=== PATIENT | female | born 1985 | race Caucasian/White ===

== ENCOUNTER 2016-12-13 13:52 | Emergency (ER) | payer BC, SELFPAY ==
[2016-12-13] MEDS ORDERED: ISOVUE-370 76% 100ML VIAL (Q9967) As Ordered ONE (14:28)
[2016-12-13 14:45] LABS: BASO # 0.1 K/mm3 (0.0-0.2); BASO % 0.7 % (0.0-1.0); EOS # 0.1 K/mm3 (0.0-0.50); EOS % 1.4 % (0.0-3.0); LARGE UNSTAINED CELL # 0.1 K/mm3 (0.0-0.4); LARGE UNSTAINED CELL % 0.7 % (0.0-4.0); LYMPH # 0.9 K/mm3 (1.5-4.5); LYMPH % 9.2 % (24.0-44.0); MEAN CORPUSCULAR HEMOGLOBIN 32.2 pg (27.0-33.0); MEAN CORPUSCULAR HGB CONC 32.8 g/dl (32.0-36.5); MONO # 0.3 K/mm3 (0.0-0.8); MONO % 3.3 % (0.0-5.0); NEUTROPHILS # 7.9 K/mm3 (1.8-7.7); NEUTROPHILS % 84.8 % (36.0-66.0); PLATELET COUNT, AUTOMATED 304 k/mm3 (150-450); RED CELL DISTRIBUTION WIDTH 12.5 % (11.5-14.5); WHITE BLOOD COUNT 9.3 K/mm3 (4.0-10.0)
[2016-12-13 15:01] LABS: BLOOD UREA NITROGEN 12 MG/DL (7-18); CREATININE FOR GFR 0.83 MG/DL (0.55-1.02); GLOMERULAR FILTRATION RATE > 60.0 (>60); GLUCOSE, FASTING 103 MG/DL (70-105); SODIUM LEVEL 139 MEQ/L (136-145)
[2016-12-13 15:02] LABS: ALBUMIN 3.9 GM/DL (3.2-5.2); ALBUMIN/GLOBULIN RATIO 1.18 (1.00-1.93); ALKALINE PHOSPHATASE 85 U/L (45-117); ALT/SGPT 26 U/L (12-78); ANION GAP 6 MEQ/L (8-16); AST/SGOT 27 U/L (15-37); BILIRUBIN,TOTAL 0.7 MG/DL (0.2-1.0); CALCIUM LEVEL 9.3 MG/DL (8.5-10.1); CARBON DIOXIDE LEVEL 29 MEQ/L (21-32); CHLORIDE LEVEL 104 MEQ/L (98-107); POTASSIUM SERUM 4.4 MEQ/L (3.5-5.1); TOTAL PROTEIN 7.2 GM/DL (6.4-8.2)
--- NOTE | 2016-12-13 15:31 | REP ---
CT NECK WITH CONTRAST: HISTORY: Abscess. CONTRAST: Isovue-370, 75 mL. There is enlargement of the tonsils, greater on the left than on the right. There is extension of the tonsillar enlargement into the left side of the soft palate. There is inferior extension into the left lateral wall of the oropharynx. There is minimal mass effect on the oropharynx. The naso- and hypopharynx, larynx and subglottic trachea are normal in appearance. The salivary and thyroid glands are normal. An enlarged lymph node 1.2 cm in width is present in the left internal jugular chain at the level of the oropharynx. Small lymph nodes less than 1 cm in size are present in the right internal jugular chain, posterior triangles, submandibular and submental areas. The lung apices are clear. Minimal mucosal thickening is present in the left maxillary sinus. IMPRESSION: The above findings are consistent with tonsillitis and lymphadenitis. There is minimal mass effect on the oropharynx. Signed by Paul Anand MD 12/13/2016 03:50 P
[2016-12-13 15:41] LABS: ERYTHROCYTE SEDIMENTATION RATE 2 mm/hr (0-20)
--- NOTE | 2016-12-13 15:41 | EDDOCDS ---
Nurse's Notes [facility] Name: Nora Williamson Age: 31 yrs Sex: Female : 1985 Arrival Date: 12/13/2016 Time: 13:52 Bed I2 / M2 Private MD: Jena Monroe Diagnosis: Hypertrophy of tonsils-tonsilloliths;Acute tonsillitis Presentation: 12/13 14:06 Presenting complaint: Patient states: Sent from [facility] for [facility] tonsillar abscess on the left.. has had sore throat for weeks worse over the last 2 days. Adult Sepsis Screening: The patient does not have new or worsening altered mentation. Patient's respiratory rate is less than 22. Systolic blood pressure is greater than 100. Patient has a qSOFA score of 0- Negative Sepsis Screen. Suicide/Homicide risk assessment- the patient denies having any suicidal and/or homicidal ideations and does not present with any other emotional, behavioral or mental health complaints. Status: Patient is not a supervisor gate services or dependent. Transition of care: patient was not received from another setting of care. 14:06 Acuity: SUE Level 3 [facility] 14:06 Method Of Arrival: Walkin/Carried/[facility] Triage Assessment: 14:12 General: Appears in no apparent distress, Behavior is appropriate for age. Pain: [facility] Location: throat Pain currently is 4 out of 10 on a pain scale. Pt Declines HIV testing. Neurological: Level of Consciousness is awake, alert, Oriented to person, place, time. EENT: Reports pain when swallowing Pain is 4 out of 10 on a pain scale. Respiratory: Airway is patent Respiratory effort is even, unlabored, Respiratory pattern is regular, symmetrical. Derm: Skin is pink, warm & dry. 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 Paxil 30 mg Oral tab 1 tab once daily (Last dose: 12/13/2016 07:00) 2. clonazepam 1 mg Oral tab 1 tab daily (Last dose: 12/13/2016 07:00) 3. Prednisone 60 mg Oral one time dose at urgent care (Last dose: 12/13/2016 12:15) 4. Rocephin 1 gram Inj solr 1 g one time dose at urgent care (Last dose: 12/13/2016 12:15) - PMHx: Anxiety Disorder; - PSHx: Breast Augmentation; - Social history: Smoking status: Patient uses tobacco products, heavy tobacco smoker. No barriers to communication noted, The patient speaks fluent Arabic. - Family history: Not pertinent. - : The pt / caregiver states he / she is not on anticoagulants. Home medication list is obtained from the patient. - Exposure Risk Screening:: None identified. Screenin:31 Screening information is obtained from the patient. Fall risk: No risks identified. kr3 Assistance ADL's: requires no assistance with activities of daily living. Abuse/DV Screen: The patient / caregiver reports he/she is: not in a situation that causes fear, pain or injury. Nutritional screening: No deficits noted. Advance Directives: Currently, there is no health care proxy. home support is adequate. Assessment: 14:31 General: Appears in no apparent distress, comfortable, Behavior is cooperative. Pain: kr3 Location: throat Pain currently is 4 out of 10 on a pain scale. Neurological: Level of Consciousness is awake, alert. EENT: Reports pain swallowing but able to swallow saliva. Respiratory: Respiratory effort is even, unlabored. Derm: Skin is normal. 15:40 Reassessment: Patient appears in no apparent distress at this time. Pain: Location: kr3 throat Pain currently is 4 out of 10 on a pain scale. Respiratory: Respiratory effort is even, unlabored. Derm: Skin is pink, warm & dry. Vital Signs: 13:55 BP 127 / 75; Pulse 83; Resp 18; Temp 96.4(O); Pulse Ox 99% on R/A; Weight 74.84 kg (R); elp Height 5 ft. 8 in. (172.72 cm) (R); 15:37 BP 122 / 83; Pulse 84; Resp 18; Temp 97.9(TE); Pulse Ox 95% on R/A; Pain 0/10; nb2 13:55 Body Mass Index 25.09 (74.84 kg, 172.72 cm) [facility] Vitals: 13:55 Log In Time: December 13, 2016 at 13:53. [facility] ED Course: 13:54 Patient visited by Virginia Mcguire PCA. [facility] 13:54 Patient moved to Waiting el 13:55 Jena Monroe is Private Physician. elp 13:56 Patient visited by Virginia Mcguire PCA. elp 13:56 Patient moved to Pre RCE elp 14:08 Triage Initiated kpj 14:18 Patient moved to I2 / M2 dsf 14:19 Mario Alberto Steel PA is PHCP. btw 14:19 Shirley Quiñones MD is Attending Physician. btw 14:19 Patient visited by Mario Alberto Steel PA. btw 14:30 Inserted saline lock: 20 gauge in left antecubital area and blood collected. The kr3 patient tolerated the procedure well. 14:30 CRP Sent. kr3 14:30 ESR Sent. kr3 14:31 Complete Comphrensive Metabolic Sent. kr3 14:31 CBC with Diff Sent. kr3 14:32 The patient / caregiver is instructed regarding the plan of care and ED course. Patient altagracia has correct armband on for positive identification. Placed in gown. Bed in low position. Call light in reach. Side rails up X 1. 14:59 Patient visited by Cornelia Giron RN. rs3 15:30 [facility] Payment Agreement was scanned into [employer] and attached to record. lg 15:32 Mehul Palencia is Referral Physician. btw 15:38 Patient visited by Lelia Bynum. nb2 15:39 Discontinued lock intact, bleeding controlled, pressure dressing applied, No kr3 redness/swelling at site. No procedures done that require assistance. Order Results: Lab Order: CBC with Diff; SPEC'M 12/13/16 14:29 Test: WHITE BLOOD COUNT; Value: 9.3; Range: 4.0-10.0; Units: K/mm3; Status: F Test: RED BLOOD COUNT; Value: 4.37; Range: 4.00-5.40; Units: M/mm3; Status: F Test: HEMOGLOBIN; Value: 14.1; Range: 12.0-16.0; Units: g/dl; Status: F Test: HEMATOCRIT; Value: 42.8; Range: 36.0-47.0; Units: %; Status: F Test: MEAN CORPUSCULAR VOLUME; Value: 98.0; Range: 80.0-96.0; Abnormal: Above high normal; Units: fl; Status: F Test: MEAN CORPUSCULAR HEMOGLOBIN; Value: 32.2; Range: 27.0-33.0; Units: pg; Status: F Test: MEAN CORPUSCULAR HGB CONC; Value: 32.8; Range: 32.0-36.5; Units: g/dl; Status: F Test: RED CELL DISTRIBUTION WIDTH; Value: 12.5; Range: 11.5-14.5; Units: %; Status: F Test: PLATELET COUNT, AUTOMATED; Value: 304; Range: 150-450; Units: k/mm3; Status: F Test: NEUTROPHILS %; Value: 84.8; Range: 36.0-66.0; Abnormal: Above high normal; Units: %; Status: F Test: LYMPH %; Value: 9.2; Range: 24.0-44.0; Abnormal: Below low normal; Units: %; Status: F Test: MONO %; Value: 3.3; Range: 0.0-5.0; Units: %; Status: F Test: EOS %; Value: 1.4; Range: 0.0-3.0; Units: %; Status: F Test: BASO %; Value: 0.7; Range: 0.0-1.0; Units: %; Status: F Test: LARGE UNSTAINED CELL %; Value: 0.7; Range: 0.0-4.0; Units: %; Status: F Test: NEUTROPHILS #; Value: 7.9; Range: 1.8-7.7; Abnormal: Above high normal; Units: K/mm3; Status: F Test: LYMPH #; Value: 0.9; Range: 1.5-4.5; Abnormal: Below low normal; Units: K/mm3; Status: F Test: MONO #; Value: 0.3; Range: 0.0-0.8; Units: K/mm3; Status: F Test: EOS #; Value: 0.1; Range: 0.0-0.50; Units: K/mm3; Status: F Test: BASO #; Value: 0.1; Range: 0.0-0.2; Units: K/mm3; Status: F Test: LARGE UNSTAINED CELL #; Value: 0.1; Range: 0.0-0.4; Units: K/mm3; Status: F Lab Order: Complete Comphrensive Metabolic; SPEC'M 12/13/16 14:29 Test: GLUCOSE, FASTING; Value: 103; Range: 70-105; Units: MG/DL; Status: F Test: BLOOD UREA NITROGEN; Value: 12; Range: 7-18; Units: MG/DL; Status: F Test: CREATININE FOR GFR; Value: 0.83; Range: 0.55-1.02; Units: MG/DL; Status: F Test: GLOMERULAR FILTRATION RATE; Value: > 60.0; Range: >60; Status: F Test: SODIUM LEVEL; Value: 139; Range: 136-145; Units: MEQ/L; Status: F Test: POTASSIUM SERUM; Value: 4.4; Range: 3.5-5.1; Units: MEQ/L; Status: F Test: CHLORIDE LEVEL; Value: 104; Range: 98-107; Units: MEQ/L; Status: F Test: CARBON DIOXIDE LEVEL; Value: 29; Range: 21-32; Units: MEQ/L; Status: F Test: ANION GAP; Value: 6; Range: 8-16; Abnormal: Below low normal; Units: MEQ/L; Status: F Test: CALCIUM LEVEL; Value: 9.3; Range: 8.5-10.1; Units: MG/DL; Status: F Test: AST/SGOT; Value: 27; Range: 15-37; Units: U/L; Status: F Test: ALT/SGPT; Value: 26; Range: 12-78; Units: U/L; Status: F Test: ALKALINE PHOSPHATASE; Value: 85; Range: 45-117; Units: U/L; Status: F Test: BILIRUBIN,TOTAL; Value: 0.7; Range: 0.2-1.0; Units: MG/DL; Status: F Test: TOTAL PROTEIN; Value: 7.2; Range: 6.4-8.2; Units: GM/DL; Status: F Test: ALBUMIN; Value: 3.9; Range: 3.2-5.2; Units: GM/DL; Status: F Test: ALBUMIN/GLOBULIN RATIO; Value: 1.18; Range: 1.00-1.93; Status: F Test Note: ; Units are mL/min/1.73 m2 Chronic Kidney Disease Staging per NKF: Stage I & II GFR >=60 Normal to Mildly Decreased Stage III GFR 30-59 Moderately Decreased Stage IV GFR 15-29 Severely Decreased Stage V GFR <15 Very Little GFR Left ESRD GFR <15 on DUAL RATE DEALER Lab Order: ESR; SPEC'M 12/13/16 14:29 Test: ERYTHROCYTE SEDIMENTATION RATE; Range: 0-20; Units: mm/hr; Status: I Lab Order: CRP; SPEC'M 12/13/16 14:29 Test: C REACTIVE PROTEIN QUANTITATIV; Value: 1.41; Range: 0.00-0.30; Abnormal: Above high normal; Units: MG/DL; Status: F Outcome: 15:33 Discharge ordered by Provider. bt 15:39 Discharge Assessment: patient administered narcotics - no. The following High Risk kr3 Discharge criteria are identified: None. Discharged to home ambulatory. Condition: stable. Discharge instructions given to patient, Instructed on discharge instructions, follow up and referral plans. medication usage, Demonstrated understanding of instructions, medications, Pt was receptive of discharge instructions/ teaching. Prescriptions given X 1. CT Study completed. Property sent home with patient. 15:40 Patient left the ED. kr3 Signatures: Radha Macario, RN RN Robert Lazo, Kj Reg lg Kira RayRN RN kr3 Cornelia GironRN RN rs3 Mario Alberto Steel PA PA btw Fuller, DesireeRN RN uniquef Virginia Mcguire, BANK NOTE DESIGNER BANK NOTE DESIGNER elp Lelia Bynum2 MTDD
--- NOTE | 2016-12-13 15:41 | EDDOCDS ---
Physician Documentation [facility] Name: Nora Williamson Age: 31 yrs Sex: Female : 1985 Arrival Date: 12/13/2016 Time: 13:52 Bed I2 / M2 Private MD: Jena Monroe Disposition: 12/13/16 15:33 Discharged to Home/Self Care. Impression: Hypertrophy of tonsils - tonsilloliths, Acute tonsillitis. - Condition is Stable. - Discharge Instructions: Tonsillitis, [id number]. - Prescriptions for Augmentin 875- 125 mg Oral Tablet - take 1 tablet by ORAL route every 12 hours for 10 days; 20 tablet. - Medication Reconciliation, Local Pharmacy Hours form. - Follow up: Mehul Palencia; When: Call to arrange an appointment; Reason: Further diagnostic work-up, Recheck today's complaints, Continuance of care. - Problem is new. - Symptoms are unchanged. Historical: - Allergies: No known drug Allergies; - Home Meds: 1. Paxil 30 mg Oral tab 1 tab once daily (Last dose: 12/13/2016 07:00) 2. clonazepam 1 mg Oral tab 1 tab daily (Last dose: 12/13/2016 07:00) 3. Prednisone 60 mg Oral one time dose at urgent care (Last dose: 12/13/2016 12:15) 4. Rocephin 1 gram Inj solr 1 g one time dose at urgent care (Last dose: 12/13/2016 12:15) - PMHx: Anxiety Disorder; - PSHx: Breast Augmentation; - Social history: Smoking status: Patient uses tobacco products, heavy tobacco smoker. No barriers to communication noted, The patient speaks fluent Botswanan. - Family history: Not pertinent. - : The pt / caregiver states he / she is not on anticoagulants. Home medication list is obtained from the patient. - Exposure Risk Screening:: None identified. 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 8 in. (172.72 cm) (R); 15:37 BP 122 / 83; Pulse 84; Resp 18; Temp 97.9(TE); Pulse Ox 95% on R/A; Pain 0/10; nb2 13:55 Body Mass Index 25.09 (74.84 kg, 172.72 cm) elp MDM: 14:24 IV Saline Lock ordered. btw 14:25 CT Neck With Contrast Ordered. EDMS 14:25 CBC with Diff Ordered. EDMS 14:25 Complete Comphrensive Metabolic Ordered. EDMS 14:25 ESR Ordered. EDMS 14:25 CRP Ordered. EDMS 14:49 Financial registration complete. lg 15:05 CBC with Diff Reviewed. btw 15:05 Complete Comphrensive Metabolic Reviewed. btw 15:05 CRP Reviewed. btw 15:30 [facility] Payment Agreement was scanned into [employer] and attached to record. lg Signatures: Dispatcher [employer] Radha Esqueda, JONATHAN RN Robert Lazo, Kj Reg Kira Ray RN RN kr3 Mario Alberto Steel, BRY PA btw The chart was reviewed and I authenticate all verbal orders and agree with the evaluation and treatment provided.Attachments: 15:30 [facility] Payment Agreement lg MTDD
--- NOTE | 2016-12-15 16:40 | EDDOCDS ---
Nurse's Notes [facility] Name: Nora Williamson Age: 31 yrs Sex: Female : 1985 Arrival Date: 12/13/2016 Time: 13:52 Bed I2 / M2 Private MD: Jena Monroe Diagnosis: Hypertrophy of tonsils-tonsilloliths;Acute tonsillitis Presentation: 12/13 14:06 Presenting complaint: Patient states: Sent from [facility] for [facility] tonsillar abscess on the left.. has had sore throat for weeks worse over the last 2 days. Adult Sepsis Screening: The patient does not have new or worsening altered mentation. Patient's respiratory rate is less than 22. Systolic blood pressure is greater than 100. Patient has a qSOFA score of 0- Negative Sepsis Screen. Suicide/Homicide risk assessment- the patient denies having any suicidal and/or homicidal ideations and does not present with any other emotional, behavioral or mental health complaints. Status: Patient is not a developmental services worker or dependent. Transition of care: patient was not received from another setting of care. 14:06 Acuity: SUE Level 3 [facility] 14:06 Method Of Arrival: Walkin/Carried/Asstd [facility] Triage Assessment: 14:12 General: Appears in no apparent distress, Behavior is appropriate for age. Pain: [facility] Location: throat Pain currently is 4 out of 10 on a pain scale. Pt Declines HIV testing. Neurological: Level of Consciousness is awake, alert, Oriented to person, place, time. EENT: Reports pain when swallowing Pain is 4 out of 10 on a pain scale. Respiratory: Airway is patent Respiratory effort is even, unlabored, Respiratory pattern is regular, symmetrical. Derm: Skin is pink, warm & dry. 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 Paxil 30 mg Oral tab 1 tab once daily (Last dose: 12/13/2016 07:00) 2. clonazepam 1 mg Oral tab 1 tab daily (Last dose: 12/13/2016 07:00) 3. Prednisone 60 mg Oral one time dose at urgent care (Last dose: 12/13/2016 12:15) 4. Rocephin 1 gram Inj solr 1 g one time dose at urgent care (Last dose: 12/13/2016 12:15) - PMHx: Anxiety Disorder; - PSHx: Breast Augmentation; - Social history: Smoking status: Patient uses tobacco products, heavy tobacco smoker. No barriers to communication noted, The patient speaks fluent Bulgarian. - Family history: Not pertinent. - : The pt / caregiver states he / she is not on anticoagulants. Home medication list is obtained from the patient. - Exposure Risk Screening:: None identified. Screenin:31 Screening information is obtained from the patient. Fall risk: No risks identified. kr3 Assistance ADL's: requires no assistance with activities of daily living. Abuse/DV Screen: The patient / caregiver reports he/she is: not in a situation that causes fear, pain or injury. Nutritional screening: No deficits noted. Advance Directives: Currently, there is no health care proxy. home support is adequate. Assessment: 14:31 General: Appears in no apparent distress, comfortable, Behavior is cooperative. Pain: kr3 Location: throat Pain currently is 4 out of 10 on a pain scale. Neurological: Level of Consciousness is awake, alert. EENT: Reports pain swallowing but able to swallow saliva. Respiratory: Respiratory effort is even, unlabored. Derm: Skin is normal. 15:40 Reassessment: Patient appears in no apparent distress at this time. Pain: Location: kr3 throat Pain currently is 4 out of 10 on a pain scale. Respiratory: Respiratory effort is even, unlabored. Derm: Skin is pink, warm & dry. Vital Signs: 13:55 BP 127 / 75; Pulse 83; Resp 18; Temp 96.4(O); Pulse Ox 99% on R/A; Weight 74.84 kg (R); elp Height 5 ft. 8 in. (172.72 cm) (R); 15:37 BP 122 / 83; Pulse 84; Resp 18; Temp 97.9(TE); Pulse Ox 95% on R/A; Pain 0/10; nb2 13:55 Body Mass Index 25.09 (74.84 kg, 172.72 cm) [facility] Vitals: 13:55 Log In Time: December 13, 2016 at 13:53. [facility] ED Course: 13:54 Patient visited by Virginia Mcguire PCA. [facility] 13:54 Patient moved to Waiting el 13:55 Jena Monroe is Private Physician. elp 13:56 Patient visited by Virginia Mcguire PCA. elp 13:56 Patient moved to Pre RCE elp 14:08 Triage Initiated kpj 14:18 Patient moved to I2 / M2 dsf 14:19 Mario Alberto Steel PA is PHCP. btw 14:19 Shirley Quiñones MD is Attending Physician. btw 14:19 Patient visited by Mario Alberto Steel PA. btw 14:30 Inserted saline lock: 20 gauge in left antecubital area and blood collected. The kr3 patient tolerated the procedure well. 14:30 CRP Sent. kr3 14:30 ESR Sent. kr3 14:31 Complete Comphrensive Metabolic Sent. kr3 14:31 CBC with Diff Sent. kr3 14:32 The patient / caregiver is instructed regarding the plan of care and ED course. Patient altagracia has correct armband on for positive identification. Placed in gown. Bed in low position. Call light in reach. Side rails up X 1. 14:59 Patient visited by Cornelia Giron RN. rs3 15:30 [facility] Payment Agreement was scanned into [employer] and attached to record. lg 15:32 Mehul Palencia is Referral Physician. btw 15:38 Patient visited by Lelia Bynum. nb2 15:39 Discontinued lock intact, bleeding controlled, pressure dressing applied, No kr3 redness/swelling at site. No procedures done that require assistance. 15:45 CT Neck With Contrast Returned. EDMS 02 10:49 T-Sheet-- Draft Copy was scanned into [employer] and attached to record. gb Order Results: Lab Order: CBC with Diff; SPEC'M 12/13/16 14:29 Test: WHITE BLOOD COUNT; Value: 9.3; Range: 4.0-10.0; Units: K/mm3; Status: F Test: RED BLOOD COUNT; Value: 4.37; Range: 4.00-5.40; Units: M/mm3; Status: F Test: HEMOGLOBIN; Value: 14.1; Range: 12.0-16.0; Units: g/dl; Status: F Test: HEMATOCRIT; Value: 42.8; Range: 36.0-47.0; Units: %; Status: F Test: MEAN CORPUSCULAR VOLUME; Value: 98.0; Range: 80.0-96.0; Abnormal: Above high normal; Units: fl; Status: F Test: MEAN CORPUSCULAR HEMOGLOBIN; Value: 32.2; Range: 27.0-33.0; Units: pg; Status: F Test: MEAN CORPUSCULAR HGB CONC; Value: 32.8; Range: 32.0-36.5; Units: g/dl; Status: F Test: RED CELL DISTRIBUTION WIDTH; Value: 12.5; Range: 11.5-14.5; Units: %; Status: F Test: PLATELET COUNT, AUTOMATED; Value: 304; Range: 150-450; Units: k/mm3; Status: F Test: NEUTROPHILS %; Value: 84.8; Range: 36.0-66.0; Abnormal: Above high normal; Units: %; Status: F Test: LYMPH %; Value: 9.2; Range: 24.0-44.0; Abnormal: Below low normal; Units: %; Status: F Test: MONO %; Value: 3.3; Range: 0.0-5.0; Units: %; Status: F Test: EOS %; Value: 1.4; Range: 0.0-3.0; Units: %; Status: F Test: BASO %; Value: 0.7; Range: 0.0-1.0; Units: %; Status: F Test: LARGE UNSTAINED CELL %; Value: 0.7; Range: 0.0-4.0; Units: %; Status: F Test: NEUTROPHILS #; Value: 7.9; Range: 1.8-7.7; Abnormal: Above high normal; Units: K/mm3; Status: F Test: LYMPH #; Value: 0.9; Range: 1.5-4.5; Abnormal: Below low normal; Units: K/mm3; Status: F Test: MONO #; Value: 0.3; Range: 0.0-0.8; Units: K/mm3; Status: F Test: EOS #; Value: 0.1; Range: 0.0-0.50; Units: K/mm3; Status: F Test: BASO #; Value: 0.1; Range: 0.0-0.2; Units: K/mm3; Status: F Test: LARGE UNSTAINED CELL #; Value: 0.1; Range: 0.0-0.4; Units: K/mm3; Status: F Lab Order: Complete Comphrensive Metabolic; SPEC'M 12/13/16 14:29 Test: GLUCOSE, FASTING; Value: 103; Range: 70-105; Units: MG/DL; Status: F Test: BLOOD UREA NITROGEN; Value: 12; Range: 7-18; Units: MG/DL; Status: F Test: CREATININE FOR GFR; Value: 0.83; Range: 0.55-1.02; Units: MG/DL; Status: F Test: GLOMERULAR FILTRATION RATE; Value: > 60.0; Range: >60; Status: F Test: SODIUM LEVEL; Value: 139; Range: 136-145; Units: MEQ/L; Status: F Test: POTASSIUM SERUM; Value: 4.4; Range: 3.5-5.1; Units: MEQ/L; Status: F Test: CHLORIDE LEVEL; Value: 104; Range: 98-107; Units: MEQ/L; Status: F Test: CARBON DIOXIDE LEVEL; Value: 29; Range: 21-32; Units: MEQ/L; Status: F Test: ANION GAP; Value: 6; Range: 8-16; Abnormal: Below low normal; Units: MEQ/L; Status: F Test: CALCIUM LEVEL; Value: 9.3; Range: 8.5-10.1; Units: MG/DL; Status: F Test: AST/SGOT; Value: 27; Range: 15-37; Units: U/L; Status: F Test: ALT/SGPT; Value: 26; Range: 12-78; Units: U/L; Status: F Test: ALKALINE PHOSPHATASE; Value: 85; Range: 45-117; Units: U/L; Status: F Test: BILIRUBIN,TOTAL; Value: 0.7; Range: 0.2-1.0; Units: MG/DL; Status: F Test: TOTAL PROTEIN; Value: 7.2; Range: 6.4-8.2; Units: GM/DL; Status: F Test: ALBUMIN; Value: 3.9; Range: 3.2-5.2; Units: GM/DL; Status: F Test: ALBUMIN/GLOBULIN RATIO; Value: 1.18; Range: 1.00-1.93; Status: F Test Note: ; Units are mL/min/1.73 m2 Chronic Kidney Disease Staging per NKF: Stage I & II GFR >=60 Normal to Mildly Decreased Stage III GFR 30-59 Moderately Decreased Stage IV GFR 15-29 Severely Decreased Stage V GFR <15 Very Little GFR Left ESRD GFR <15 on DENTOFACIAL ORTHOPEDICS DENTIST Lab Order: ESR; SPEC'M 12/13/16 14:29 Test: ERYTHROCYTE SEDIMENTATION RATE; Value: 2; Range: 0-20; Units: mm/hr; Status: F Lab Order: CRP; SPEC'M 12/13/16 14:29 Test: C REACTIVE PROTEIN QUANTITATIV; Value: 1.41; Range: 0.00-0.30; Abnormal: Above high normal; Units: MG/DL; Status: F Radiology Order: CT Neck With Contrast Test: CT Neck With Contrast REASON FOR EXAMINATION: ? peritonsillar abscess L side; CT NECK WITH CONTRAST:; ; HISTORY: Abscess.; ; CONTRAST: Isovue-370, 75 mL.; ; There is enlargement of the tonsils, greater on the left than on the right. There; is extension of the tonsillar enlargement into the left side of the soft palate.; There is inferior extension into the left lateral wall of the oropharynx. There; is minimal mass effect on the oropharynx. The naso- and hypopharynx, larynx and; subglottic trachea are normal in appearance. The salivary and thyroid glands are; normal. An enlarged lymph node 1.2 cm in width is present in the left internal; jugular chain at the level of the oropharynx. Small lymph nodes less than 1 cm in; size are present in the right internal jugular chain, posterior triangles,; submandibular and submental areas. The lung apices are clear. Minimal mucosal; thickening is present in the left maxillary sinus.; ; IMPRESSION:; ; The above findings are consistent with tonsillitis and lymphadenitis. There is; minimal mass effect on the oropharynx.; ; ; Signed by; Paul Anand MD 12/13/2016 03:50 P; Outcome: 12/13 15:33 Discharge ordered by Provider. btw 15:39 Discharge Assessment: patient administered narcotics - no. The following High Risk kr3 Discharge criteria are identified: None. Discharged to home ambulatory. Condition: stable. Discharge instructions given to patient, Instructed on discharge instructions, follow up and referral plans. medication usage, Demonstrated understanding of instructions, medications, Pt was receptive of discharge instructions/ teaching. Prescriptions given X 1. CT Study completed. Property sent home with patient. 15:40 Patient left the ED. kr3 Signatures: Dispatcher [employer] EDMS Radha Macario, RN RN kpj Suzy Bosch, Reg Reg gb Robert Fuchs, Reg Reg lg Kira Ray,RN RN kr3 Cornelia GironRN RN rs3 Mario Alberto Steel PA PA btw Fuller, Desiree,RN RN dsf Virginia Mcguire, SURVEILLANCE SYSTEMS ENGINEER SURVEILLANCE SYSTEMS ENGINEER elp Lelia Bynum nb2 Chart Complete MTDD
--- NOTE | 2016-12-15 16:40 | EDDOCDS ---
Physician Documentation [facility] Name: Nora Williamson Age: 31 yrs Sex: Female : 1985 Arrival Date: 12/13/2016 Time: 13:52 Bed I2 / M2 Private MD: Jena Monroe Disposition: 12/13/16 15:33 Discharged to Home/Self Care. Impression: Hypertrophy of tonsils - tonsilloliths, Acute tonsillitis. - Condition is Stable. - Discharge Instructions: Tonsillitis, [id number]. - Prescriptions for Augmentin 875- 125 mg Oral Tablet - take 1 tablet by ORAL route every 12 hours for 10 days; 20 tablet. - Medication Reconciliation, Local Pharmacy Hours form. - Follow up: Mehul Palencia; When: Call to arrange an appointment; Reason: Further diagnostic work-up, Recheck today's complaints, Continuance of care. - Problem is new. - Symptoms are unchanged. Historical: - Allergies: No known drug Allergies; - Home Meds: 1. Paxil 30 mg Oral tab 1 tab once daily (Last dose: 12/13/2016 07:00) 2. clonazepam 1 mg Oral tab 1 tab daily (Last dose: 12/13/2016 07:00) 3. Prednisone 60 mg Oral one time dose at urgent care (Last dose: 12/13/2016 12:15) 4. Rocephin 1 gram Inj solr 1 g one time dose at urgent care (Last dose: 12/13/2016 12:15) - PMHx: Anxiety Disorder; - PSHx: Breast Augmentation; - Social history: Smoking status: Patient uses tobacco products, heavy tobacco smoker. No barriers to communication noted, The patient speaks fluent Solomon Islander. - Family history: Not pertinent. - : The pt / caregiver states he / she is not on anticoagulants. Home medication list is obtained from the patient. - Exposure Risk Screening:: None identified. 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 8 in. (172.72 cm) (R); 15:37 BP 122 / 83; Pulse 84; Resp 18; Temp 97.9(TE); Pulse Ox 95% on R/A; Pain 0/10; nb2 13:55 Body Mass Index 25.09 (74.84 kg, 172.72 cm) elp MDM: 14:24 IV Saline Lock ordered. btw 14:25 CT Neck With Contrast Ordered. EDMS 14:25 CBC with Diff Ordered. EDMS 14:25 Complete Comphrensive Metabolic Ordered. EDMS 14:25 ESR Ordered. EDMS 14:25 CRP Ordered. EDMS 14:49 Financial registration complete. lg 15:05 CBC with Diff Reviewed. btw 15:05 Complete Comphrensive Metabolic Reviewed. btw 15:05 CRP Reviewed. btw 15:30 [facility] Payment Agreement was scanned into [employer] and attached to record. lg 12/14 10:49 T-Sheet-- Draft Copy was scanned into [employer] and attached to record. gb Signatures: Dispatcher [employer] EDRadha Fernandez RN RN Suzy Montero, Reg Reg gb Robert Fuchs, Reg Reg lg Kira Ray,RN RN kr3 Mario Alberto Steel, BRY PA btw The chart was reviewed and I authenticate all verbal orders and agree with the evaluation and treatment provided.Attachments: 12/13 15:30 [facility] Payment Agreement lg 12/14 10:49 T-Sheet-- Draft Copy gb Chart Complete MTDD
--- NOTE | 2016-12-15 16:40 | EDDOCDS ---
Physician Documentation [facility] Name: Nora Williamson Age: 31 yrs Sex: Female : 1985 Arrival Date: 12/13/2016 Time: 13:52 Bed I2 / M2 Private MD: Jena Monroe Disposition: 12/13/16 15:33 Discharged to Home/Self Care. Impression: Hypertrophy of tonsils - tonsilloliths, Acute tonsillitis. - Condition is Stable. - Discharge Instructions: Tonsillitis, [id number]. - Prescriptions for Augmentin 875- 125 mg Oral Tablet - take 1 tablet by ORAL route every 12 hours for 10 days; 20 tablet. - Medication Reconciliation, Local Pharmacy Hours form. - Follow up: Mehul Palencia; When: Call to arrange an appointment; Reason: Further diagnostic work-up, Recheck today's complaints, Continuance of care. - Problem is new. - Symptoms are unchanged. Historical: - Allergies: No known drug Allergies; - Home Meds: 1. Paxil 30 mg Oral tab 1 tab once daily (Last dose: 12/13/2016 07:00) 2. clonazepam 1 mg Oral tab 1 tab daily (Last dose: 12/13/2016 07:00) 3. Prednisone 60 mg Oral one time dose at urgent care (Last dose: 12/13/2016 12:15) 4. Rocephin 1 gram Inj solr 1 g one time dose at urgent care (Last dose: 12/13/2016 12:15) - PMHx: Anxiety Disorder; - PSHx: Breast Augmentation; - Social history: Smoking status: Patient uses tobacco products, heavy tobacco smoker. No barriers to communication noted, The patient speaks fluent Bahraini. - Family history: Not pertinent. - : The pt / caregiver states he / she is not on anticoagulants. Home medication list is obtained from the patient. - Exposure Risk Screening:: None identified. 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 8 in. (172.72 cm) (R); 15:37 BP 122 / 83; Pulse 84; Resp 18; Temp 97.9(TE); Pulse Ox 95% on R/A; Pain 0/10; nb2 13:55 Body Mass Index 25.09 (74.84 kg, 172.72 cm) elp MDM: 14:24 IV Saline Lock ordered. btw 14:25 CT Neck With Contrast Ordered. EDMS 14:25 CBC with Diff Ordered. EDMS 14:25 Complete Comphrensive Metabolic Ordered. EDMS 14:25 ESR Ordered. EDMS 14:25 CRP Ordered. EDMS 14:49 Financial registration complete. lg 15:05 CBC with Diff Reviewed. btw 15:05 Complete Comphrensive Metabolic Reviewed. btw 15:05 CRP Reviewed. btw 15:30 [facility] Payment Agreement was scanned into [employer] and attached to record. lg 12/14 10:49 T-Sheet-- Draft Copy was scanned into [employer] and attached to record. gb Signatures: Dispatcher [employer] EDRadha Fernandez RN RN Suzy Montero, Reg Reg gb Robert Fuchs, Reg Reg lg Kira Ray,RN RN kr3 Mario Alberto Steel, BRY PA btw The chart was reviewed and I authenticate all verbal orders and agree with the evaluation and treatment provided.Attachments: 12/13 15:30 [facility] Payment Agreement lg 12/14 10:49 T-Sheet-- Draft Copy gb Chart Complete MTDD
== END 2016-12-13 15:40 | disposition home or self-care (01) ==
LOC: M ED 13:52
DX: J03.90 Acute tonsillitis, unspecified (principal); F41.9 Anxiety disorder, unspecified; Z79.899 Other long term (current) drug therapy; F17.210 Nicotine dependence, cigarettes, uncomplicated
CPT/HCPCS: 36415; 70491; 80053; 85025; 85652; 86140; 99284; Q9967

== ENCOUNTER → 2016-12-13 | Outpatient (CLI) | payer BC ==
--- NOTE | 2016-12-13 13:29 | REP ---
SOFT-TISSUE NECK X-RAY: THREE VIEWS. HISTORY: Peritonsillar abscess. Sore throat. Swollen left neck. FINDINGS: AP and two lateral views of the neck soft tissues are presented. The epiglottis and aryepiglottic folds are normal in appearance. The tonsillar soft tissues are somewhat prominent. The retropharyngeal soft tissues are swollen up to 11 mm in thickness at the level of the C2-3 disc. Glottic and subglottic airway are normal. AP view shows no abnormality. IMPRESSION: Retropharyngeal soft tissue swelling diffusely. Soft tissue CT study of the neck with IV contrast is suggested to evaluate for soft tissue abscess. Signed by Shiraz Ford MD 12/13/2016 04:32 P
[2016-12-13 19:31] LABS: BASO # 0.1 K/mm3 (0.0-0.2); EOS # 0.2 K/mm3 (0.0-0.50); EOS % 2.6 % (0.0-3.0); LARGE UNSTAINED CELL # 0.2 K/mm3 (0.0-0.4); LARGE UNSTAINED CELL % 1.7 % (0.0-4.0); LYMPH # 1.9 K/mm3 (1.5-4.5); LYMPH % 19.2 % (24.0-44.0); MEAN CORPUSCULAR HEMOGLOBIN 32.3 pg (27.0-33.0); MEAN CORPUSCULAR HGB CONC 32.5 g/dl (32.0-36.5); MEAN CORPUSCULAR VOLUME 99.5 fl (80.0-96.0); MONO # 0.6 K/mm3 (0.0-0.8); MONO % 6.9 % (0.0-5.0); NEUTROPHILS # 6.2 K/mm3 (1.8-7.7); NEUTROPHILS % 68.6 % (36.0-66.0); PLATELET COUNT, AUTOMATED 308 k/mm3 (150-450); RED CELL DISTRIBUTION WIDTH 12.5 % (11.5-14.5)
== END ==
LOC: M WUC 11:45
PROVIDERS: ATTEND Physician Assistant
DX: J02.9 Acute pharyngitis, unspecified (principal)

== ENCOUNTER 2017-06-21 05:42 | Emergency (ER) | payer OTHER, SELFPAY ==
[2017-06-21] MEDS ORDERED: PAXI30TA11 PO (05:51)
[2017-06-21] MEDS ORDERED: CLON1TAB PO (05:51)
[2017-06-21] MEDS ORDERED: KETOROLAC 60 MG/2 ML VIAL (J1885) IM ONE (07:15)
[2017-06-21] MEDS ORDERED: VALI5TAB PO (07:17)
[2017-06-21] MEDS ORDERED: NAPR500T PO (07:17)
[2017-06-21 08:12] VITALS: BP 111/60
[2017-09-07] MEDS ORDERED: CLIN150C14 PO (12:08)
[2017-09-07] MEDS ORDERED: IBUP1TAB7 PO (12:08)
[2017-09-12] MEDS ORDERED: MULT1TAB10 PO (19:35)
[2017-09-12] MEDS ORDERED: BIOT10008 PO (19:35)
[2017-09-12] MEDS ORDERED: IRON65TA PO (19:35)
== END 2017-06-21 08:15 | disposition home or self-care (01) ==
LOC: M ED 05:42
DX: M46.1 Sacroiliitis, not elsewhere classified (principal); Z72.0 Tobacco use
CPT/HCPCS: 96372; 99282; J1885

== ENCOUNTER → 2017-06-24 | Outpatient (CLI) | payer OTHER ==
[~2017-06-24] MED LIST: CLIN150C14 PO; CLON1TAB PO; IBUP1TAB7 PO; NAPR500T PO; PAXI30TA11 PO; VALI5TAB PO
[2017-06-24 15:25] LABS: BASO # 0.1 K/mm3 (0.0-0.2); BASO % 0.5 % (0.0-1.0); EOS # 0.1 K/mm3 (0.0-0.50); EOS % 0.8 % (0.0-3.0); LARGE UNSTAINED CELL # 0.1 K/mm3 (0.0-0.4); LARGE UNSTAINED CELL % 1.2 % (0.0-4.0); LYMPH # 1.7 K/mm3 (1.5-4.5); LYMPH % 13.1 % (24.0-44.0); MEAN CORPUSCULAR HEMOGLOBIN 32.4 pg (27.0-33.0); MEAN CORPUSCULAR HGB CONC 33.4 g/dl (32.0-36.5); MEAN CORPUSCULAR VOLUME 97.2 fl (80.0-96.0); MONO # 0.7 K/mm3 (0.0-0.8); MONO % 5.6 % (0.0-5.0); NEUTROPHILS # 9.4 K/mm3 (1.8-7.7); NEUTROPHILS % 78.8 % (36.0-66.0); PLATELET COUNT, AUTOMATED 325 k/mm3 (150-450); RED CELL DISTRIBUTION WIDTH 12.7 % (11.5-14.5)
[2017-06-24 15:54] LABS: ALBUMIN 4.1 GM/DL (3.2-5.2); ALBUMIN/GLOBULIN RATIO 1.32 (1.00-1.93); ALKALINE PHOSPHATASE 88 U/L (45-117); ALT/SGPT 26 U/L (12-78); ANION GAP 10 MEQ/L (8-16); AST/SGOT 20 U/L (15-37); BILIRUBIN,TOTAL 0.6 MG/DL (0.2-1.0); BLOOD UREA NITROGEN 21 MG/DL (7-18); CALCIUM LEVEL 8.7 MG/DL (8.5-10.1); CARBON DIOXIDE LEVEL 24 MEQ/L (21-32); CHLORIDE LEVEL 105 MEQ/L (98-107); CHOLESTEROL LEVEL 120 MG/DL (<200); CREATININE FOR GFR 0.89 MG/DL (0.55-1.02); FREE T4 0.99 NG/DL (0.76-1.46); GLOMERULAR FILTRATION RATE > 60.0 (>60); GLUCOSE, FASTING 84 MG/DL (70-105); SODIUM LEVEL 139 MEQ/L (136-145); TOTAL PROTEIN 7.2 GM/DL (6.4-8.2); TRIGLYCERIDES LEVEL 169 MG/DL (<150)
== END ==
LOC: M LAB 14:40
PROVIDERS: ATTEND Nurse Practitioner Adult Health
DX: Z51.81 Encounter for therapeutic drug level monitoring (principal); Z79.899 Other long term (current) drug therapy

== ENCOUNTER 2017-10-21 13:00 | Inpatient (IN) | payer OTHER ==
[~2017-10-21] VITALS: Ht 172.7 cm; Wt 63.0 kg
[2017-10-21] MEDS: NICOTINE 21MG/24HR 1 EA TRANSDERMAL TD SCH (09:00)
[~2017-10-21 13:00] MED LIST changes: +BIOT10008 PO; +IRON65TA PO; +MULT1TAB10 PO
[2017-10-21] MEDS ORDERED: HYDR-3363 PO (13:15)
[2017-10-21 14:00] LABS: MEAN CORPUSCULAR HEMOGLOBIN 32.9 pg (27.0-33.0); MEAN CORPUSCULAR HGB CONC 34.5 g/dl (32.0-36.5); MEAN CORPUSCULAR VOLUME 95.3 fl (80.0-96.0); PLATELET COUNT, AUTOMATED 288 10^3/uL (150-450); RED CELL DISTRIBUTION WIDTH 13.6 % (11.5-14.5); WHITE BLOOD COUNT 7.1 10^3/uL (4.0-10.0)
[2017-10-21 14:29] LABS: METHADONE URINE NEGATIVE (NEGATIVE)
[2017-10-21 14:30] LABS: CONTROL LINE HCG INT CTR LINE PRESENT
[2017-10-21 14:41] LABS: ALBUMIN/GLOBULIN RATIO 1.21 (1.00-1.93); ALKALINE PHOSPHATASE 75 U/L (45-117); ALT/SGPT 39 U/L (12-78); ANION GAP 8 MEQ/L (8-16); AST/SGOT 26 U/L (7-37); BILIRUBIN,DIRECT 0.3 MG/DL (0.0-0.2); BILIRUBIN,TOTAL 1.1 MG/DL (0.2-1.0); BLOOD UREA NITROGEN 13 MG/DL (7-18); CARBON DIOXIDE LEVEL 28 MEQ/L (21-32); CHLORIDE LEVEL 105 MEQ/L (98-107); CREATININE FOR GFR 0.87 MG/DL (0.55-1.02); GLOMERULAR FILTRATION RATE > 60.0 (>60); GLUCOSE, FASTING 95 MG/DL (70-105); POTASSIUM SERUM 3.6 MEQ/L (3.5-5.1); SODIUM LEVEL 141 MEQ/L (136-145); TOTAL PROTEIN 7.3 GM/DL (6.4-8.2)
[2017-10-21] MEDS ORDERED: MAALOX 30 ML SUSP *UDC PO PRN (16:15)
[2017-10-21] MEDS ORDERED: LORazepam 1 MG TAB PO PRN (16:15)
[2017-10-21] MEDS ORDERED: ACETAMINOPHEN TAB 650MG DOSE (2X325MG) PO PRN (16:15)
[2017-10-21] MEDS ORDERED: HALOPERIDOL 5 MG TAB PO PRN (16:15)
[2017-10-21] MEDS: risperiDONE 1 MG TAB PO SCH ×2 (17:00→21:00)
[2017-10-21 17:53] VITALS: BP 119/77
[2017-10-21] MEDS: traZODone 50 MG TAB PO PRN (21:33)
[2017-10-22 06:22] VITALS: BP 126/73
[2017-10-22] MEDS: NICOTINE 21MG/24HR 1 EA TRANSDERMAL TD SCH (07:41)
[2017-10-22] MEDS: risperiDONE 1 MG TAB PO SCH ×4 (07:42→20:26)
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
[2017-10-22] MEDS: MULTIVITAMINS/MINERALS THERAP 1 TAB PO SCH (10:34)
[2017-10-22] MEDS: FERROUS SULFATE 325MG TAB PO SCH ×3 (10:35→20:26)
[2017-10-22] MEDS: MOM 30ML SUSPENSION UDC PO PRN (11:37)
[2017-10-22 18:00] VITALS: BP 114/57
[2017-10-22] MEDS: traZODone 50 MG TAB PO PRN (21:29)
[2017-10-23 07:12] VITALS: BP 109/59
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
[2017-10-23 08:14] LABS: FERRITIN 66 NG/ML (8-252); PERCENT SATURATION 10.4 % (13.2-45.0); TOTAL IRON BINDING CAPACITY 269 UG/DL (250-450)
[2017-10-23] MEDS: MULTIVITAMINS/MINERALS THERAP 1 TAB PO SCH (08:34)
[2017-10-23] MEDS: NICOTINE 21MG/24HR 1 EA TRANSDERMAL TD SCH (08:34)
[2017-10-23] MEDS: FERROUS SULFATE 325MG TAB PO SCH ×3 (08:34→21:34)
[2017-10-23] MEDS: risperiDONE 1 MG TAB PO SCH ×4 (08:34→21:34)
[2017-10-23 12:12] LABS: VITAMIN B12 LEVEL 699 PG/ML (247-911)
[2017-10-23 12:16] LABS: FOLATE 18.5 NG/ML (>5.4)
[2017-10-23 18:00] VITALS: BP 131/65
[2017-10-23] MEDS: MOM 30ML SUSPENSION UDC PO PRN (21:34)
[2017-10-23] MEDS: traZODone 50 MG TAB PO PRN (21:34)
[2017-10-24 07:08] VITALS: BP 141/65
[2017-10-24] MEDS: MULTIVITAMINS/MINERALS THERAP 1 TAB PO SCH (08:03)
[2017-10-24] MEDS: FERROUS SULFATE 325MG TAB PO SCH ×3 (08:03→20:54)
[2017-10-24] MEDS: NICOTINE 21MG/24HR 1 EA TRANSDERMAL TD SCH (08:03)
[2017-10-24] MEDS: risperiDONE 1 MG TAB PO SCH ×4 (08:03→20:54)
[2017-10-24] MEDS: MOM 30ML SUSPENSION UDC PO PRN (10:16)
[2017-10-24] MEDS: SODIUM CHLORIDE NASAL 0.65% SPRAY BTL (OCEAN) PRN ×2 (16:42→20:55)
--- NOTE | 2017-10-24 17:16 | MHIPN ---
DATE: 10/23/2017 VITAL SIGNS: Temperature 99.1, pulse 70, respirations 16, blood pressure 109/59. CURRENT MEDICATIONS: - Risperdal 1 mg four times a day - trazodone 50 mg nightly as needed PSYCHIATRIC HISTORY: Patient is noted to be quite tangential with pressured speech on the unit. Patient has been sleeping a lot on the unit, she blames her previous insomnia prior to admission. Patient is starting to take the Risperdal, starting yesterday afternoon. She likes the medication, she reports that it is reducing her rapid cycling and racing thoughts, she feels calmer on it, she is able to focus better. Her appetite is improved, she is starting to eat better, she likes to eat by herself so she is not distracted. She still gets weepy at times, thinking about her son. Patient is still worried about her brother, who has cancer. She states that her well logging captain will be coming in to visit today. She requests special visitation hours with her mother, who works late. She has had no panic attacks. Staff report that it is her who has all the property and businesses, not the patient herself. MENTAL STATUS EXAMINATION: Patient is alert and oriented. Speech is still rapid and pressured, racing thoughts are less prominent however. Behavior is more appropriate today. Speech is not as disjointed. She still gets weepy at times, but overall affect is more appropriate. Insight and judgment seem improved. DIAGNOSIS: Bipolar disorder mixed. PLAN: Continue psychotropics. Encourage milieu therapy.
[2017-10-24 18:00] VITALS: BP 117/70
[2017-10-25 06:56] VITALS: BP 105/57
[2017-10-25] MEDS: MULTIVITAMINS/MINERALS THERAP 1 TAB PO SCH (08:27)
[2017-10-25] MEDS: risperiDONE 1 MG TAB PO SCH ×2 (08:27→12:11)
[2017-10-25] MEDS: NICOTINE 21MG/24HR 1 EA TRANSDERMAL TD SCH (08:27)
[2017-10-25] MEDS: FERROUS SULFATE 325MG TAB PO SCH (08:27)
[2017-10-25] MEDS: MOM 30ML SUSPENSION UDC PO PRN (08:41)
[2017-10-25] MEDS ORDERED: RISP4TAB2 PO (13:54)
[2017-10-25] MEDS ORDERED: TRAZO50TA PO (13:54)
--- NOTE | 2017-10-26 09:18 | MHIPN ---
DATE: 10/24/2017 VITAL SIGNS: Temperature 98.0. Pulse 92. Respirations 18. Blood pressure 141/65. CURRENT MEDICATION: - Risperdal 1 mg four times a day - trazodone 50 mg nightly PSYCHIATRIC HISTORY: Patient reports the Risperdal has been helpful. She is tolerating it well. She denies side effects. She ventilates regarding the stress with her ex-. Her appetite is good. She is sleeping somewhat better. She finds the trazodone helpful for sleep. Her mother and brother have come in to visit in the evenings. Patient's mother has contacted staff reporting the patient is not at baseline. MENTAL STATUS EXAMINATION: Patient is alert, oriented and cooperative. Grooming and hygiene are fair. Speech is still quite rapid, pressured and tangential. She still has racing thoughts. She still has episodes of weepiness as well. She denies being suicidal. Patient not hearing voices. No paranoia noted. Insight and judgment appear fair. IMPRESSION: Bipolar disorder, mixed. Rule out alcohol use disorder. Rule out amphetamine stimulant use disorder. PLAN: Continue current psychotropics and milieu therapy. MTDD
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
== END 2017-10-25 14:10 | disposition home or self-care (01) | DRG 753 ==
LOC: M ED 13:00 → M ED INP 16:15 → M PSY 17:47
PROVIDERS: ADMIT Psychiatry & Neurology Psychiatry; ATTEND Psychiatry & Neurology Psychiatry
DX: F31.64 Bipolar disorder, current episode mixed, severe, with psychotic features (principal); D64.9 Anemia, unspecified; F41.0 Panic disorder [episodic paroxysmal anxiety]; Z81.1 Family history of alcohol abuse and dependence; Z81.3 Family history of other psychoactive substance abuse and dependence; Z81.8 Family history of other mental and behavioral disorders; Z62.810 Personal history of physical and sexual abuse in childhood; F17.210 Nicotine dependence, cigarettes, uncomplicated

== ENCOUNTER → 2022-12-31 | Outpatient (REF) | payer OTHER ==
[~2022-12-31] MED LIST changes: -CLIN150C14 PO; +CLIN150C17 PO; -CLON1TAB PO; +CLON1TAB8 PO; +HYDR-3363 PO; +NAPR-837 PO; -NAPR500T PO; -PAXI30TA11 PO; +PAXI30TA12 PO; +RISP-11 PO; +TRAZ1TAB10 PO
== END ==
LOC: M LAB REF 16:24
PROVIDERS: ATTEND Student in an Organized Health Care Education/Training Program
DX: J02.9 Acute pharyngitis, unspecified (principal)

== ENCOUNTER → 2023-02-11 | Outpatient (REF) | payer OTHER, MEDICAID ==
[2023-02-11 17:06] LABS: BASO # 0.1 10^3/uL (0.0-0.2); BASO % 1.6 % (0.0-1.0); EOS # 0.2 10^3/uL (0.0-0.5); EOS % 2.8 % (0.0-3.0); HEMATOCRIT 44.6 % (36.0-47.0); HEMOGLOBIN 14.5 g/dl (12.0-15.5); LYMPH # 1.9 10^3/uL (1.5-5.0); LYMPH % 32.3 % (24.0-44.0); MEAN CORPUSCULAR HEMOGLOBIN 31.7 pg (27.0-33.0); MEAN CORPUSCULAR HGB CONC 32.5 g/dl (32.0-36.5); MEAN CORPUSCULAR VOLUME 97.6 fl (80.0-96.0); MONO # 0.5 10^3/uL (0.0-0.8); MONO % 8.4 % (2.0-8.0); NEUTROPHILS # 3.1 10^3/uL (1.5-8.5); NEUTROPHILS % 54.4 % (36.0-66.0); PLATELET COUNT, AUTOMATED 298 10^3/uL (150-450); RED BLOOD COUNT 4.57 10^6/uL (4.00-5.40); WHITE BLOOD COUNT 5.7 10^3/uL (4.0-10.0)
[2023-02-11 17:31] LABS: C REACTIVE PROTEIN QUANTITATIV < 0.40 MG/DL (<1.0)
[2023-02-11 17:32] LABS: ALBUMIN 3.9 G/DL (3.2-5.2); ALKALINE PHOSPHATASE 82 U/L (46-116); ALT/SGPT 39 U/L (7.0-40); AST/SGOT 17 U/L (<34); BILIRUBIN,TOTAL 0.4 MG/DL (0.3-1.2); BLOOD UREA NITROGEN 8 MG/DL (9-23); CALCIUM LEVEL 9.2 MG/DL (8.5-10.1); CARBON DIOXIDE LEVEL 24 MMOL/L (20-31); CHLORIDE LEVEL 108 MMOL/L (98-107); CHOLESTEROL LEVEL 162 MG/DL (<200); CHOLESTEROL RISK RATIO 4.16 (<5); CREATININE FOR GFR 0.86 MG/DL (0.55-1.30); GLOMERULAR FILTRATION RATE > 60.0 (>60); GLUCOSE, FASTING 89 MG/DL (60-100); HDL CHOLESTEROL 38.9 MG/DL (>40); LDL CHOLESTEROL 99.9 MG/DL (<100); NON-HDL-C 123.1 MG/DL; POTASSIUM SERUM 4.9 MMOL/L (3.5-5.1); SODIUM LEVEL 137 MMOL/L (136-145); TOTAL PROTEIN 6.6 G/DL (5.7-8.2); TRIGLYCERIDES LEVEL 116 MG/DL (<150)
[2023-02-11 17:33] LABS: RHEUMATOID FACTOR QUANT < 3.5 IU/ML (<14)
[2023-02-11 17:34] LABS: TOTAL 25(OH) VITAMIN D 33.8 NG/ML (20.0-100.0)
[2023-02-11 17:57] LABS: HIV 1&2 SCREEN ATELLICA NEGATIVE (NEGATIVE)
[2023-02-11 18:03] LABS: ERYTHROCYTE SEDIMENTATION RATE 3 mm/hr (0-20)
[2023-02-11 18:05] LABS: HEPATITIS C VIRUS ABY INDEX < 0.0 INDEX (<0.8)
[2023-02-13 21:07] LABS: ANA (HEP2) Negative (.); CYCLIC CITRULLINATED PEPTIDE 4 units (0-19); SSA SJOGRENS A <0.2 AI (0.0-0.9); SSB SJOGRENS B <0.2 AI (0.0-0.9)
== END ==
LOC: M LAB REF 12:14
PROVIDERS: ATTEND Physician Assistant
DX: L40.9 Psoriasis, unspecified (principal); R63.5 Abnormal weight gain; Z11.4 Encounter for screening for human immunodeficiency virus [HIV]; Z13.228 Encounter for screening for other metabolic disorders

== ENCOUNTER → 2023-03-20 | Outpatient (CLI) | payer OTHER ==
[2023-03-20 15:08] LABS: BASO # 0.1 10^3/uL (0.0-0.2); BASO % 1.2 % (0.0-1.0); EOS # 0.1 10^3/uL (0.0-0.5); EOS % 2.2 % (0.0-3.0); HEMATOCRIT 45.8 % (36.0-47.0); HEMOGLOBIN 15.3 g/dl (12.0-15.5); LYMPH % 33.8 % (24.0-44.0); MEAN CORPUSCULAR HEMOGLOBIN 32.5 pg (27.0-33.0); MEAN CORPUSCULAR HGB CONC 33.4 g/dl (32.0-36.5); MEAN CORPUSCULAR VOLUME 97.2 fl (80.0-96.0); MONO # 0.4 10^3/uL (0.0-0.8); MONO % 6.8 % (2.0-8.0); NEUTROPHILS # 3.4 10^3/uL (1.5-8.5); NEUTROPHILS % 55.8 % (36.0-66.0); PLATELET COUNT, AUTOMATED 315 10^3/uL (150-450); RED BLOOD COUNT 4.71 10^6/uL (4.00-5.40)
[2023-03-20 15:36] LABS: ALBUMIN 3.9 G/DL (3.2-5.2); ALKALINE PHOSPHATASE 77 U/L (46-116); ALT/SGPT 28 U/L (7.0-40); AST/SGOT 16 U/L (<34); BILIRUBIN,DIRECT 0.3 MG/DL (<0.4); BILIRUBIN,TOTAL 0.7 MG/DL (0.3-1.2); BLOOD UREA NITROGEN 9 MG/DL (9-23); CALCIUM LEVEL 9.1 MG/DL (8.5-10.1); CARBON DIOXIDE LEVEL 26 MMOL/L (20-31); CHLORIDE LEVEL 106 MMOL/L (98-107); CHOLESTEROL LEVEL 138 MG/DL (<200); CHOLESTEROL RISK RATIO 4.07 (<5); CREATININE FOR GFR 0.92 MG/DL (0.55-1.30); GLOMERULAR FILTRATION RATE > 60.0 (>60); GLUCOSE, FASTING 100 MG/DL (60-100); HDL CHOLESTEROL 33.9 MG/DL (>40); LDL CHOLESTEROL 69.1 MG/DL (<100); NON-HDL-C 104.1 MG/DL; POTASSIUM SERUM 3.6 MMOL/L (3.5-5.1); SODIUM LEVEL 141 MMOL/L (136-145); TOTAL PROTEIN 6.6 G/DL (5.7-8.2); TRIGLYCERIDES LEVEL 175 MG/DL (<150)
[2023-03-20 15:37] LABS: HEPATITIS B SURFACE ANTIBODY NEGATIVE (POSITIVE)
[2023-03-20 15:49] LABS: HEPATITIS B SURFACE ANTIGEN NEGATIVE (NEGATIVE)
== END ==
LOC: M WUC 08:57
DX: L40.0 Psoriasis vulgaris (principal)

== ENCOUNTER → 2023-11-26 | Outpatient (CLI) | payer OTHER ==
[2023-11-26 15:01] LABS: HEMATOCRIT 42.2 % (36.0-47.0); HEMOGLOBIN 14.3 g/dl (12.0-15.5); MEAN CORPUSCULAR HEMOGLOBIN 32.5 pg (27.0-33.0); MEAN CORPUSCULAR HGB CONC 33.9 g/dl (32.0-36.5); MEAN CORPUSCULAR VOLUME 95.9 fl (80.0-96.0); PLATELET COUNT, AUTOMATED 284 10^3/uL (150-450)
[2023-11-26 15:21] LABS: HEMOGLOBIN A1c 4.9 % (4.0-6.0)
[2023-11-26 15:31] LABS: LIPASE 62 U/L (12-53)
[2023-11-26 15:33] LABS: AMYLASE 105 U/L (30-118)
[2023-11-26 15:34] LABS: ALBUMIN 3.7 G/DL (3.2-5.2); ALKALINE PHOSPHATASE 61 U/L (46-116); ALT/SGPT 36 U/L (7.0-40); AST/SGOT 18 U/L (<34); BILIRUBIN,TOTAL 0.4 MG/DL (0.3-1.2); BLOOD UREA NITROGEN 26 MG/DL (9-23); CALCIUM LEVEL 8.8 MG/DL (8.5-10.1); CARBON DIOXIDE LEVEL 26 MMOL/L (20-31); CHLORIDE LEVEL 109 MMOL/L (98-107); CHOLESTEROL LEVEL 125 MG/DL (<200); CHOLESTEROL RISK RATIO 5.02 (<5); CREATININE FOR GFR 0.83 MG/DL (0.55-1.30); GLOMERULAR FILTRATION RATE > 60.0 (>58); GLUCOSE, FASTING 100 MG/DL (60-100); HDL CHOLESTEROL 24.9 MG/DL (>40); LDL CHOLESTEROL 64.1 MG/DL (<100); NON-HDL-C 100.1 MG/DL; POTASSIUM SERUM 3.8 MMOL/L (3.5-5.1); SODIUM LEVEL 139 MMOL/L (136-145); TOTAL PROTEIN 6.3 G/DL (5.7-8.2); TRIGLYCERIDES LEVEL 180 MG/DL (<150)
[2023-11-26 15:36] LABS: THYROID STIMULATING HORMONE 2.056 uIU/ML (0.55-4.78)
== END ==
LOC: M WUC 12:34
PROVIDERS: ATTEND Dermatology
DX: E07.9 Disorder of thyroid, unspecified (principal)

== ENCOUNTER → 2024-05-26 | Outpatient (CLI) | payer OTHER ==
[~2024-05-26] MED LIST changes: -RISP-11 PO; +RISP4TAB95 PO
[2024-05-26 18:06] LABS: HEMATOCRIT 45.4 % (36.0-47.0); MEAN CORPUSCULAR HEMOGLOBIN 32.6 pg (27.0-33.0); MEAN CORPUSCULAR VOLUME 98.7 fl (80.0-96.0); PLATELET COUNT, AUTOMATED 268 10^3/uL (150-450); WHITE BLOOD COUNT 5.7 10^3/uL (4.0-10.0)
[2024-05-26 18:44] LABS: ALKALINE PHOSPHATASE 61 U/L (46-116); ALT/SGPT 27 U/L (7.0-40); AST/SGOT 10 U/L (<34); BILIRUBIN,TOTAL 0.5 MG/DL (0.3-1.2); BLOOD UREA NITROGEN 8 MG/DL (9-23); CARBON DIOXIDE LEVEL 24 MMOL/L (20-31); CHLORIDE LEVEL 108 MMOL/L (98-107); CHOLESTEROL LEVEL 118 MG/DL (<200); CHOLESTEROL RISK RATIO 3.66 (<5); CREATININE FOR GFR 0.88 MG/DL (0.55-1.30); FREE T4 0.92 NG/DL (0.89-1.76); GLOMERULAR FILTRATION RATE > 60.0 (>58); GLUCOSE, FASTING 88 MG/DL (60-100); HDL CHOLESTEROL 32.2 MG/DL (>40); NON-HDL-C 85.8 MG/DL; POTASSIUM SERUM 4.2 MMOL/L (3.5-5.1); SODIUM LEVEL 140 MMOL/L (136-145); THYROID STIMULATING HORMONE 2.319 uIU/ML (0.55-4.78); TOTAL PROTEIN 6.5 G/DL (5.7-8.2); TRIGLYCERIDES LEVEL 109 MG/DL (<150)
[2024-05-26 18:46] LABS: TOTAL 25(OH) VITAMIN D 54.2 NG/ML (20.0-100.0)
== END ==
LOC: M WUC 11:34
PROVIDERS: ATTEND Nurse Practitioner Adult Health
DX: Z00.8 Encounter for other general examination (principal)

== ENCOUNTER → 2024-05-27 | Outpatient (CLI) | payer OTHER | LOC: M WHC 11:00 | PROVIDERS: ATTEND Advanced Practice Midwife | DX: Z12.31 Encounter for screening mammogram for malignant neoplasm of breast (principal) ==

== ENCOUNTER → 2024-05-27 | Outpatient (REF) | payer OTHER | LOC: M PLALAB 11:49 | PROVIDERS: ATTEND Advanced Practice Midwife | DX: Z12.4 Encounter for screening for malignant neoplasm of cervix (principal) ==

== ENCOUNTER → 2025-01-15 | Outpatient (CLI) | payer MEDICAID, OTHER ==
[2025-01-15 19:05] LABS: BASO # 0.1 10^3/uL (0.0-0.2); BASO % 1.7 % (0.0-1.0); EOS # 0.2 10^3/uL (0.0-0.5); EOS % 4.6 % (0.0-3.0); HEMATOCRIT 45.1 % (36.0-47.0); HEMOGLOBIN 14.9 g/dl (12.0-15.5); LYMPH # 2.1 10^3/uL (1.5-5.0); MEAN CORPUSCULAR HEMOGLOBIN 32.7 pg (27.0-33.0); MEAN CORPUSCULAR VOLUME 99.1 fl (80.0-96.0); MONO # 0.5 10^3/uL (0.0-0.8); MONO % 8.9 % (2.0-8.0); NEUTROPHILS # 2.4 10^3/uL (1.5-8.5); NEUTROPHILS % 44.6 % (36.0-66.0); PLATELET COUNT, AUTOMATED 284 10^3/uL (150-450); RED BLOOD COUNT 4.55 10^6/uL (4.00-5.40); WHITE BLOOD COUNT 5.3 10^3/uL (4.0-10.0)
[2025-01-15 19:06] LABS: ALBUMIN 3.9 G/DL (3.2-5.2); ALKALINE PHOSPHATASE 60 U/L (35-104); ALT/SGPT 24 U/L (7.0-40); AST/SGOT 10 U/L (<34); BILIRUBIN,DIRECT 0.3 MG/DL (<0.4); BILIRUBIN,TOTAL 0.9 MG/DL (0.3-1.2); BLOOD UREA NITROGEN 10 MG/DL (9-23); CALCIUM LEVEL 9.2 MG/DL (8.5-10.1); CARBON DIOXIDE LEVEL 26 MMOL/L (20-31); CHLORIDE LEVEL 107 MMOL/L (98-107); CHOLESTEROL LEVEL 128 MG/DL (<200); CHOLESTEROL RISK RATIO 4.07 (<5); CREATININE FOR GFR 0.91 MG/DL (0.55-1.30); GLOMERULAR FILTRATION RATE > 60.0 (>58); GLUCOSE, FASTING 90 MG/DL (60-100); HDL CHOLESTEROL 31.4 MG/DL (>40); LDL CHOLESTEROL 73.2 MG/DL (<100); NON-HDL-C 96.6 MG/DL; POTASSIUM SERUM 3.9 MMOL/L (3.5-5.1); SODIUM LEVEL 142 MMOL/L (136-145); TOTAL PROTEIN 6.7 G/DL (5.7-8.2); TRIGLYCERIDES LEVEL 117 MG/DL (<150)
[2025-01-15 19:09] LABS: HEPATITIS B SURFACE ANTIBODY NEGATIVE (POSITIVE)
[2025-01-15 19:20] LABS: HEPATITIS B SURFACE ANTIGEN NEGATIVE (NEGATIVE)
[2025-01-15 19:42] LABS: HEPATITIS B CORE ANTIBODY IGM NEGATIVE (NEGATIVE); HEPATITIS C VIRUS ABY INDEX 0.03 INDEX (<0.8)
== END ==
LOC: M WUC 12:23
PROVIDERS: ATTEND Physician Assistant
DX: L40.0 Psoriasis vulgaris (principal)

== ENCOUNTER → 2025-01-15 | Outpatient (CLI) | payer MEDICAID, OTHER ==
[2025-01-15 19:02] LABS: HEMATOCRIT 45.9 % (36.0-47.0); MEAN CORPUSCULAR HEMOGLOBIN 32.3 pg (27.0-33.0); MEAN CORPUSCULAR HGB CONC 32.7 g/dl (32.0-36.5); MEAN CORPUSCULAR VOLUME 98.9 fl (80.0-96.0); PLATELET COUNT, AUTOMATED 290 10^3/uL (150-450); RED BLOOD COUNT 4.64 10^6/uL (4.00-5.40); WHITE BLOOD COUNT 5.5 10^3/uL (4.0-10.0)
[2025-01-15 19:05] LABS: ALBUMIN 3.9 G/DL (3.2-5.2); ALKALINE PHOSPHATASE 62 U/L (35-104); ALT/SGPT 23 U/L (7.0-40); AST/SGOT 10 U/L (<34); BLOOD UREA NITROGEN 12 MG/DL (9-23); CALCIUM LEVEL 9.2 MG/DL (8.5-10.1); CARBON DIOXIDE LEVEL 27 MMOL/L (20-31); CHLORIDE LEVEL 105 MMOL/L (98-107); CHOLESTEROL LEVEL 133 MG/DL (<200); CHOLESTEROL RISK RATIO 4.04 (<5); CREATININE FOR GFR 0.92 MG/DL (0.55-1.30); GLOMERULAR FILTRATION RATE > 60.0 (>58); GLUCOSE, FASTING 89 MG/DL (60-100); HDL CHOLESTEROL 32.9 MG/DL (>40); LDL CHOLESTEROL 77.1 MG/DL (<100); NON-HDL-C 100.1 MG/DL; POTASSIUM SERUM 3.7 MMOL/L (3.5-5.1); SODIUM LEVEL 139 MMOL/L (136-145); TOTAL PROTEIN 6.9 G/DL (5.7-8.2); TRIGLYCERIDES LEVEL 115 MG/DL (<150)
== END ==
LOC: M WUC 12:29
PROVIDERS: ATTEND Nurse Practitioner Adult Health
DX: F41.1 Generalized anxiety disorder (principal); D64.9 Anemia, unspecified; L40.9 Psoriasis, unspecified; F41.0 Panic disorder [episodic paroxysmal anxiety]

== ENCOUNTER → 2025-01-18 | Outpatient (CLI) | payer OTHER, MEDICAID ==
[2025-01-20 12:28] LABS: QuantiFERON-TB Gold Plus NEGATIVE (NEGATIVE)
== END ==
LOC: M WUC 10:43
PROVIDERS: ATTEND Physician Assistant
DX: L40.0 Psoriasis vulgaris (principal)

== ENCOUNTER → 2025-06-09 | Outpatient (CLI) | payer OTHER | LOC: M WUC 09:51 | DX: M25.512 Pain in left shoulder (principal) ==